=== PATIENT | female | born 1990 | race Hispanic/Latino ===

== ENCOUNTER 2023-11-01 10:39 | Emergency (ER) | payer SELFPAY ==
[2023-11-01 10:39] VITALS: PULSE 88; RESP 18; TEMP 36.9; O2SAT 99
[2023-11-01 10:49] VITALS: PULSE 94
--- NOTE | 2023-11-01 10:54 | ED.GENADULT ---
HPI - General Adult General Chief complaint: Weakness Stated complaint: high heart rate Time Seen by Provider: 11/01/23 10:41 History of Present Illness HPI narrative: 33-year-old female presenting to the emergency department for evaluation heart palpitations. Patient was at dialysis today when she had approximately 1 hour left and she began to feel dizzy and lightheaded like her heart was racing. Patient's heart rate at dialysis was in the 90s. Upon arrival to the emergency department patient's heart rate has ranged from 88-9. Patient appears to be in no distress. Translation softer was utilized for the patient interview Related Data Allergies Allergy/AdvReac Type Severity Reaction Status Date / Time No Known Allergies Allergy Verified 11/01/23 10:51 Review of Systems Review of Systems: All systems reviewed & are unremarkable except as noted in HPI and below Exam Narrative: APPEARANCE: Well appearing, no pain, no distress, well-nourished. HEAD: normocephalic, atraumatic. EYES: PERRLA/EOMI, conjunctivae clear. NOSE: Normal no drainage EARS:TMS clear with good light reflex. THROAT: Pharynx clear, no exudate. NECK: Supple. No adenopathy, no masses. RESPIRATORY: Airway patent, respirations nonlabored. Clear to auscultation bilaterally, no rales, rhonchi, wheezing. CARDIOVASCULAR: Regular rate and rhythm without murmurs rubs or gallops. ABDOMINAL: Soft, nontender, nondistended, normal bowel sounds MUSCULOSKELETAL: Moves all extremities. Strength/ROM intact, No edema, No calf tenderness. NEURO: Alert. Cranial nerves II through XII intact. Grossly intact SKIN: Warm, dry. Normal Color Course Course Emergency Course: Patient reports she does feel improved with treatment. Vital Signs Vital signs: Vital Signs Temperature 98.5 F 11/01/23 10:39 Pulse Rate 88 11/01/23 10:39 Respiratory Rate 18 11/01/23 10:39 Pulse Oximetry 99 11/01/23 10:39 Oxygen Delivery Room Air 11/01/23 10:39 Temperature 98.5 F 11/01/23 10:39 Pulse Rate 84 11/01/23 13:15 Respiratory Rate 23 H 11/01/23 13:15 Blood Pressure 130/102 H 11/01/23 13:15 Pulse Oximetry 100 11/01/23 13:15 Oxygen Delivery Room Air 11/01/23 10:39 Medical Decision Making MDM Narrative Medical decision making narrative: 33-year-old female presenting to the emergency department for evaluation of intermittent heart palpitations. Patient was afebrile with no leukocytosis and a stable hemoglobin, patient had no acute electrolyte abnormalities patient was negative for influenza RSV and for COVID. On reexamination patient states she does feel improved. Patient reports she is on a 1.5 L fluid restriction. Patient states if she drinks more she often feels better. Patient was told that she may need a subtle increase in her water intake during the warmer weather. All questions concerns were addressed patient was comfortable with the plan with discharge and close follow-up. Differential Diagnosis Differential Diagnosis: Electrolyte abnormality, CHF, pneumonia Vital Signs Vital Signs: Vital Signs Temperature 98.5 F 11/01/23 10:39 Pulse Rate 88 11/01/23 10:39 Respiratory Rate 18 11/01/23 10:39 Pulse Oximetry 99 11/01/23 10:39 Oxygen Delivery Room Air 11/01/23 10:39 Temperature 98.5 F 11/01/23 10:39 Pulse Rate 84 11/01/23 13:15 Respiratory Rate 23 H 11/01/23 13:15 Blood Pressure 130/102 H 11/01/23 13:15 Pulse Oximetry 100 11/01/23 13:15 Oxygen Delivery Room Air 11/01/23 10:39 Lab Data Lab results reviewed: Yes I reviewed the patient's lab results. 11/01/23 10:54 11/01/23 10:54 Labs: Lab Results 11/01/23 11/01/23 Range/Units 10:53 10:54 WBC 4.7 (4.5-10.0) K/mm3 RBC 3.37 L (4.2-5.4) M/mm3 Hgb 11.3 L (12.0-15.0) g/dL Hct 32.1 L (37.0-47.0) % MCV 95.3 (80-100) fl MCH 33.5 (26-34) pg MCHC 35.2 (32-36) g/dl RDW 13.8 (11.5-1
[2023-11-01 10:55] LABS: Glucose Point of Care 116 mg/dl (65-105)
[2023-11-01 11:00] LABS: Basophils Percent Auto 0.9 % (0.2-1.2); Eosinophils Absolute Auto 0.2 K/mm3 (0-0.3); Eosinophils Percent Auto 3.6 % (0-4.4); Hematocrit 32.1 % (37.0-47.0); Hemoglobin 11.3 g/dL (12.0-15.0); Immature Granulocyte Absolute 0.01 K/mm3 (0.00-0.031); Immature Granulocyte Percent A 0.2 % (0-0.5); Lymphocytes Absolute Auto 1.26 K/mm3 (0.9-3.2); Lymphocytes Percent Auto 26.9 % (18.3-44.2); Mean Corpuscular HGB Conc 35.2 g/dl (32-36); Mean Corpuscular Hemoglobin 33.5 pg (26-34); Mean Corpuscular Volume 95.3 fl (80-100); Mean Platelet Volume 9.1 fl (7.4-10.4); Monocytes Absolute Auto 0.3 K/mm3 (0.1-0.6); Monocytes Percent Auto 6.2 % (2.6-8.5); Neutrophils Absolute Auto 2.9 K/mm3 (1.3-6.7); Neutrophils Percent Auto 62.2 % (45.5-73.1); Platelet Count Result 228 k/mm3 (150-375); Red Blood Count 3.37 M/mm3 (4.2-5.4); Red Cell Distribution Width 13.8 % (11.5-14.5); White Blood Count 4.7 K/mm3 (4.5-10.0)
[2023-11-01 11:10] LABS: Alanine Aminotransferase 21 U/L (6-35); Albumin Level 4.3 g/dL (3.5-5.1); Alkaline Phosphatase 62 U/L (38-126); Anion Gap 6 mmol/L (4-12); Aspartate Amino Transferase 22 U/L (14-36); Bilirubin,Total 0.5 mg/dL (0.2-1.3); Blood Urea Nitrogen 16 mg/dL (7-17); Calcium 8.8 mg/dL (8.4-10.2); Carbon Dioxide 23 mmol/L (22-30); Chloride 102 mmol/L (98-107); Estimated CRCL calculation 14 ml/min; Estimated Glomerular Filt Rate 14; Glucose 117 mg/dL (65-110); Sodium 131 mmol/L (137-145)
[2023-11-01 11:31] VITALS: BP 119/91; PULSE 92; RESP 19; O2SAT 100
[2023-11-01 11:38] LABS: Influenza A QL RT-PCR Negative (Negative); Influenza B QL RT-PCR Negative (Negative); RSV RNA, RT-PCR Negative (Negative); SARS-CoV-2 RNA PCR Negative (Negative)
[2023-11-01 12:16] VITALS: BP 129/95; PULSE 95; RESP 18; O2SAT 100
[2023-11-01 13:15] VITALS: BP 130/102; PULSE 84; RESP 23; O2SAT 100
== END 2023-11-01 13:16 | disposition home or self-care (01) ==
PROVIDERS: Emergency Provider Emergency Medicine
DX: R00.2 Palpitations (principal); Z20.822 Contact with and (suspected) exposure to COVID-19; Z99.2 Dependence on renal dialysis
CPT/HCPCS: 36415; 80053; 82948; 85025; 87637; 99283